=== PATIENT | female | born 2000 | race Caucasian/White ===

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

== ENCOUNTER 2018-11-23 15:48 | Emergency (ER) | payer OTHER ==
[2018-11-23 16:16] VITALS: BP 124/68
--- NOTE | 2018-11-23 16:23 | UC ---
Respiratory Complaint HPI - HPI Summary HPI Summary: Pt c/o nasal and chest congestion, cough, wheezing x 2days. - History of Current Complaint Stated Complaint: COUGH,CHEST CONGESTION Time Seen by Provider: 11/23/18 16:05 Hx Obtained From: Patient Hx Last Menstrual Period: November 05 ?: No Onset/Duration: Gradual Onset, Lasting Days, Still Present, Worse Since - onset Timing: Constant Severity Initially: Mild Severity Currently: Moderate Pain Intensity: 5 Character: Cough: Productive, Sputum Description: - yellow Aggravating Factors: Deep Breaths, Recumbent Position Associated Signs And Symptoms: Positive: Wheezing, URI, Nasal Congestion - Risk Factors Pulmonary Embolism Risk Factors: Negative Pseudomonas Risk Factors: Negative Tuberculosis Risk Factors: Negative - Allergies/Home Medications Allergies/Adverse Reactions: Allergies Allergy/AdvReac Type Severity Reaction Status Date / Time amoxicillin [From Augmentin] Allergy Hives Verified 11/23/18 16:16 clavulanic acid Allergy Hives Verified 11/23/18 16:16 [From Augmentin] PMH/Surg Hx/FS Hx/Imm Hx Previously Healthy: Yes - Surgical History Surgical History: None - Family History Known Family History: Positive: Cardiac Disease - Social History Occupation: Student Lives: Dormitory/Roommates Alcohol Use: Weekly Substance Use Type: None Smoking Status (MU): Never Smoked Tobacco Have You Smoked in the Last Year: No - Immunization History Vaccination Up to Date: Yes Review of Systems All Other Systems Reviewed And Are Negative: Yes Constitutional: Positive: Negative, Other - states she "Never gets a fever when she is sick" Skin: Positive: Negative Eyes: Positive: Negative ENT: Positive: Nasal Discharge, Sinus Congestion Respiratory: Positive: Cough Cardiovascular: Positive: Negative Gastrointestinal: Positive: Negative Genitourinary: Positive: Negative Motor: Positive: Negative Neurovascular: Positive: Negative Musculoskeletal: Positive: Negative Neurological: Positive: Negative Psychological: Positive: Negative Is Patient Immunocompromised?: No Physical Exam Triage Information Reviewed: Yes Appearance: Well-Appearing Vital Signs: Initial Vital Signs Temp 98.1 F 11/23/18 16:09 Pulse 102 11/23/18 16:09 Resp 18 11/23/18 16:09 BP 124/68 11/23/18 16:09 Pulse Ox 99 11/23/18 16:09 Vital Signs Reviewed: Yes Eye Exam: Normal ENT: Positive: Nasal congestion Dental Exam: Normal Neck exam: Normal Respiratory Exam: Normal Respiratory: Positive: Normal breath sounds, No respiratory distress Cardiovascular Exam: Normal Musculoskeletal Exam: Normal Neurological Exam: Normal Psychological Exam: Normal Skin Exam: Normal Respiratory Course/Dx - Differential Dx/Diagnosis Differential Diagnosis/HQI/PQRI: Bronchitis, Exacerbation Of COPD Provider Diagnosis: Reactive airway disease that is not asthma Discharge - Sign-Out/Discharge Documenting (check all that apply): Patient Departure All imaging exams completed and their final reports reviewed: No Studies - Discharge Plan Condition: Stable Disposition: HOME Prescriptions: Albuterol HFA INHALER* [Ventolin HFA Inhaler*] 1 - 2 puff INH Q4H PRN #1 mdi PRN Reason: Sob/Wheezing Fexofenadine/Pseudoephedrine [-D 24 Hour Tablet] 1 each PO DAILY #10 tab.er.24h predniSONE TAB* [Deltasone 10 MG TAB*] 30 mg PO DAILY #12 tab Patient Education Materials: Reactive Airways Disease (ED) Referrals: [facility] [place] [facility] [[facility]] - If Needed No Primary Care Phys,NOPCP [Primary Care Provider] - - Billing Disposition and Condition Condition: STABLE Disposition: Home
== END 2018-11-23 16:33 | disposition home or self-care (01) ==
LOC: UCCORT 15:48
DX: J45.998 Other asthma (principal); Z88.3 Allergy status to other anti-infective agents
CPT/HCPCS: 99212; G0463

== ENCOUNTER 2019-06-09 12:02 | Emergency (ER) | payer OTHER ==
[2019-06-09 13:05] VITALS: BP 132/64
--- NOTE | 2019-06-09 13:25 | UC ---
Throat Pain/Nasal Madi HPI - HPI Summary HPI Summary: sore throat started yesterday. Feels feverish and neck is swollen. - History of Current Complaint Chief Complaint: UCGeneralIllness Stated Complaint: SORE THROAT, FEVER Time Seen by Provider: 06/09/19 13:18 Hx Obtained From: Patient Hx Last Menstrual Period: November 05 ?: No Onset/Duration: Sudden Onset, Lasting Days Severity: Severe Pain Intensity: 7 Associated Signs & Symptoms: Positive: Dysphagia, Hoarseness, Fever - Allergies/Home Medications Allergies/Adverse Reactions: Allergies Allergy/AdvReac Type Severity Reaction Status Date / Time amoxicillin [From Augmentin] Allergy Hives Verified 06/09/19 13:05 clavulanic acid Allergy Hives Verified 06/09/19 13:05 [From Augmentin] PMH/Surg Hx/FS Hx/Imm Hx Previously Healthy: Yes - Surgical History Surgical History: None - Family History Known Family History: Positive: Cardiac Disease - Social History Alcohol Use: Weekly Substance Use Type: None Smoking Status (MU): Never Smoked Tobacco Have You Smoked in the Last Year: No - Immunization History Vaccination Up to Date: Yes Review of Systems All Other Systems Reviewed And Are Negative: Yes Constitutional: Positive: Fever ENT: Positive: Sore Throat Is Patient Immunocompromised?: No Physical Exam Triage Information Reviewed: Yes Appearance: Well-Nourished, Ill-Appearing, Pain Distress Vital Signs: Initial Vital Signs Temp 100.2 F 06/09/19 13:00 Pulse 114 06/09/19 13:00 Resp 18 06/09/19 13:00 BP 132/64 06/09/19 13:00 Pulse Ox 100 06/09/19 13:00 Vital Signs Reviewed: Yes Eye Exam: Normal ENT: Positive: Pharyngeal erythema, TM bulging, Tonsillar swelling, Tonsillar exudate Dental Exam: Normal Neck exam: Normal Respiratory Exam: Normal Cardiovascular Exam: Normal Cardiovascular: Positive: No Murmur, Pulses Normal, Tachycardia Abdominal Exam: Normal Bowel Sounds: Positive: Present Musculoskeletal Exam: Normal Neurological Exam: Normal Psychological Exam: Normal Skin Exam: Normal Throat Pain/Nasal Course/Dx - Course Course Of Treatment: hx obtained,exam performed ,meds reviewed, rapid strep obtained. - Differential Dx/Diagnosis Differential Diagnosis/HQI/PQRI: Otitis Media, Pharyngitis, Sinusitis, URI Provider Diagnosis: Strep pharyngitis Discharge ED - Sign-Out/Discharge Documenting (check all that apply): Patient Departure All imaging exams completed and their final reports reviewed: No Studies - Discharge Plan Condition: Stable Disposition: HOME Prescriptions: Cephalexin CAP* [Keflex CAP*] 500 mg PO BID #20 cap Patient Education Materials: Pharyngitis (ED) Referrals: No Primary Care Phys,NOPCP [Primary Care Provider] - Additional Instructions: 1. Rest, Fluids, Ibuprofen or Tylenol for pain and fever. 2. Take the medication as prescribed. 3. Follow up if not improving in the next 48 -72 hours - Billing Disposition and Condition Condition: STABLE Disposition: Home
== END 2019-06-09 13:59 | disposition home or self-care (01) ==
LOC: UCCORT 12:02
DX: J02.0 Streptococcal pharyngitis (principal); Z88.0 Allergy status to penicillin
CPT/HCPCS: 87651; 99212; G0463